=== PATIENT | male | born 1950 | race Caucasian/White ===

== ENCOUNTER 2020-09-10 10:09 | Outpatient (CLI) | payer MEDICARE ==
[2020-09-10] MEDS ORDERED: METF500T17 PO (11:14)
[2020-09-10] MEDS ORDERED: AMLO-211 PO (11:14)
[2020-09-10] MEDS ORDERED: ATOR40TA78 PO (11:14)
[2020-09-10] MEDS ORDERED: gabapentin PO (11:14)
[2020-09-10] MEDS ORDERED: DAPA5TAB PO (11:14)
[2020-09-10] MEDS ORDERED: ACET-1600 PO (11:14)
== END 2020-09-10 23:59 | disposition home or self-care (01) ==
LOC: STAR 10:09
PROVIDERS: ATTEND Orthopaedic Surgery Hand Surgery
DX: Z02.9 Encounter for administrative examinations, unspecified (principal)

== ENCOUNTER 2020-09-16 06:49 | Day surgery (SDC) | payer MEDICARE ==
[2020-09-10 11:18] LABS: ALBUMIN 4.3 g/dL (3.4-5.0); ANION GAP 8 mmol/L (5-15); CALCIUM 9.3 mg/dL (8.5-10.1); CHLORIDE 107 mmol/L (98-107)
[2020-09-10 11:22] LABS: ALANINE AMINOTRANSFERASE 16 U/L (12-78); ALKALINE PHOSPHATASE 66 U/L (45-117); BILIRUBIN,TOTAL 0.4 mg/dL (0.2-1.0)
[~2020-09-16] VITALS: Ht 175.3 cm; Wt 92.2 kg
[~2020-09-16 06:49] MED LIST: ACET-1600 PO; AMLO-211 PO; ATOR40TA78 PO; DAPA5TAB PO; METF500T17 PO; gabapentin PO
[2020-09-16 07:24] VITALS: BP 152/79
[2020-09-16] MEDS ORDERED: LACTATED RINGERS 1,000 ML IV SCH (07:30)
[2020-09-16] MEDS ORDERED: CHLORHEXIDINE 15 ML UDC PO ONE (07:30)
[2020-09-16] MEDS ORDERED: FENTANYL PF 250 MCG/5ML ONE (08:54)
[2020-09-16] MEDS ORDERED: BUPIVACAINE/PF 0.5% ONE (09:06)
[2020-09-16] MEDS ORDERED: LABETALOL 5MG/ML, 20ML IV PRN (09:30)
[2020-09-16] MEDS ORDERED: OXYcodone 5 MG/5 ML ORAL.SOL UDC PO PRN (09:30)
[2020-09-16] MEDS ORDERED: hydrALAzine 20 MG/ML, 1ML IV PRN (09:30)
[2020-09-16] MEDS ORDERED: ACETAMINOPHEN 325 MG TABLET PO PRN (09:30)
[2020-09-16] MEDS ORDERED: MEPERIDINE/PF 25MG/0.5ML IVPush PRN (09:30)
[2020-09-16] MEDS ORDERED: ONDANSETRON 2MG/ML, 2ML IVPush PRN (09:30)
[2020-09-16] MEDS ORDERED: PROPOFOL 10 MG/ML, 20ML ONE (09:40)
[2020-09-16] MEDS ORDERED: CEFAZOLIN 1,000 MG ONE (09:40)
[2020-09-16] MEDS ORDERED: OXYcodone 5 MG/5 ML ORAL.SOL UDC ONE (11:12)
[2020-09-16] MEDS ORDERED: morphine SULFATE 10 MG/ML, 1ML ONE ×2 (11:12→11:25)
[2020-09-16] MEDS ORDERED: FENTANYL PF 100 MCG/2ML ONE (11:12)
[2020-09-16] MEDS: FENTANYL PF 100 MCG/2ML IV PRN ×2 (11:13→11:18)
[2020-09-16] MEDS: morphine SULFATE 10 MG/ML, 1ML IVPush PRN ×3 (11:23→11:33)
[2020-09-16] MEDS ORDERED: hydrALAzine 20 MG/ML, 1ML ONE (11:34)
[2020-09-16] MEDS ORDERED: ONDANSETRON 2MG/ML, 2ML ONE (12:07)
== END 2020-09-16 13:20 | disposition home or self-care (01) ==
LOC: OUT 06:49
PROVIDERS: ATTEND Orthopaedic Surgery Hand Surgery
DX: M19.041 Primary osteoarthritis, right hand (principal); E11.9 Type 2 diabetes mellitus without complications; I10 Essential (primary) hypertension; E78.5 Hyperlipidemia, unspecified; G43.909 Migraine, unspecified, not intractable, without status migrainosus; Z20.822 Contact with and (suspected) exposure to COVID-19; Z79.82 Long term (current) use of aspirin; Z79.84 Long term (current) use of oral hypoglycemic drugs; Z79.891 Long term (current) use of opiate analgesic; Z79.899 Other long term (current) drug therapy; Z87.891 Personal history of nicotine dependence; Z88.8 Allergy status to other drugs, medicaments and biological substances
CPT/HCPCS: 26530; 36415; 73140; 80053; 82962; 93005; C1776; J0360; J0690; J2270; J2405; J2704; J3010; J7120; U0003; U0005; 76000